=== PATIENT | male | born 2000 | race Caucasian/White ===

== ENCOUNTER 2019-03-11 04:11 | Emergency (ER) | payer OTHER ==
--- NOTE | 2019-03-11 04:49 | ED ---
HPI Chest Pain - HPI Summary HPI Summary: This pt is a 18 Y/O M presenting to [facility] with a CC of CP located Left Anterior that is rated a 7/10 and has been present since 0800 03/09/2019. He states that he has been SOB, clammy hands, clammy feet, chills, myalgia, night diaphoresis, inability to sleep, and a nonproductive cough. He states that he has had all of these symptoms since the onset of his CP. He denies any fevers, N/V, abdominal pain and dysuria. He states that he has no aggravating or alleviating factors. He has been eating since the onset but hasnt had much of an appetite. He states that he has a PMHx of asthma and a SHx of smoking tobacco in the past. - History of Current Complaint Chief Complaint: EDChestPainROMI Time Seen by Provider: 03/11/19 04:45 Hx Obtained From: Patient Onset/Duration: Started Days Ago - 2, Still Present Time of Onset: 08:00 - 03/09/2019 Timing: Constant Initial Severity: Moderate Current Severity: Moderate Pain Intensity: 7 Pain Scale Used: 0-10 Numeric Chest Pain Location: Left Anterior Chest Pain Radiates: No Character: Tightness Aggravating Factor(s): Nothing Alleviating Factor(s): Nothing Associated Signs and Symptoms: Positive: Negative - dysuria, Chest Pain, Shortness of Breath - clammy hands and feet, dysuria, myalgia, inability to sleep, Chills, Diaphoresis, Nonproductive Cough, Abdominal Pain, Other: - clammy hands and feet. Negative: Fever, Nausea, Vomiting - Allergy/Home Medications Allergies/Adverse Reactions: Allergies Allergy/AdvReac Type Severity Reaction Status Date / Time No Known Allergies Allergy Verified 03/11/19 04:14 PMH/Surg Hx/FS Hx/Imm Hx Previously Healthy: Yes Endocrine/Hematology History: Denies: Hx Diabetes Cardiovascular History: Denies: Hx Hypertension Respiratory History: Denies: Hx Sleep Apnea - Cancer History Hx Chemotherapy: No Hx Radiation Therapy: No - Surgical History Surgical History: None - Immunization History Immunizations Up to Date: Yes Infectious Disease History: No Infectious Disease History: Denies: Traveled Outside the [place] in Last 30 Days - Family History Known Family History: Positive: Hypertension, Diabetes - Social History Occupation: Student - [place] Lives: Dormitory/Roommates Alcohol Use: None Hx Substance Use: No Substance Use Type: Reports: None Hx Tobacco Use: Yes Smoking Status (MU): Former Smoker Review of Systems Positive: Chills, Skin Diaphoresis. Negative: Fever Positive: Chest Pain Positive: Shortness Of Breath Positive: Abdominal Pain. Negative: Vomiting, Nausea Negative: dysuria Positive: Myalgia Skin: Other - POSITIVE: clammy hands and feet All Other Systems Reviewed And Are Negative: Yes Physical Exam - Summary Physical Exam Summary: Appearance: Well-appearing, Well-nourished, lying in bed comfortably Skin: Warm, dry, no obvious rash Eyes: sclera anicteric, no conjunctival pallor ENT: mucous membranes moist, pharynx appears normal Neck: Supple, nontender Respiratory: Clear to auscultation, no signs of respiratory distress Cardiovascular: Normal S1, S2. No murmurs. Normal distal pulses in tibial and radial bilaterally. Abdomen: Soft, nontender, normal active bowel sounds present Musculoskeletal: Normal, Strength/ROM Intact Neurological: A&Ox3, awake and alert, mentation is normal, speech is fluent and appropriate Psychiatric: affect is normal, does not appear anxious or depressed Triage Information Reviewed: Yes Vital Signs On Initial Exam: Initial Vitals Temp Pulse Resp BP Pulse Ox 98.0 F 61 15 151/93 99 03/11/19 04:13 03/11/19 04:13 03/11/19 04:13 03/11/19 04:13 03/11/19 04:13 Vital Signs Reviewed: Yes Procedures - Sedation Patient Received Moderate/Deep Sedation with Procedure: No Diagnostics - Vital Signs Vital Signs Temp Pulse Resp BP Pulse Ox 03/11/19 04:13 98.0 F 61 15 151/93 99 - Laboratory Lab Results: Lab Results 03/11/19 Range/Units 04:28 Influenza A (Rapid) Pending Influenza B (Rapid) Pending Lab Statement: Any lab studies that have been ordered have been reviewed, and results considered in the medical decision making process. - Radiology CXR Radiology Interpretation Completed By: ED Physician Summary of Radiographic Findings: No acute processes. Pending offical review. - EKG 0421 Cardiac Rate: NL - 74 BPM EKG Rhythm: Sinus Rhythm ST Segment: Normal Ectopy: None Summary of EKG Findings: NSR at 74 BPM, P waves, QRS complex, and T waves are within normal limits, T waves and intervals are normal, no ischemic changes. This is a normal EKG. Interpreted by Dr. Terrazas at 03/11/2019 0426. Chest Pain Course/Dx - Course Course Of Treatment: This pt is a 18 Y/O M presenting to [facility] with a CC of CP located Left Anterior that is rated a 7/10 and has been present since 0800 2019. He states that he has been SOB, clammy hands, clammy feet, chills, myalgia , night diaphoresis, inability to sleep, and a nonproductive cough. He states that he has had all of these symptoms since the onset of his CP. His PE found no acute abnormalities. His EKG taken at 0421 NSR at 74 BPM, P waves, QRS complex, and T waves are within normal limits, T waves and intervals are normal , no ischemic changes. This is a normal EKG. His lab results are negative for Influenza. His CXR shows no acute processes. He will be discharged home with a Dx of chest pain and URI. - Diagnoses Provider Diagnoses: Chest pain, URI (upper respiratory infection) Discharge ED - Sign-Out/Discharge Documenting (check all that apply): Patient Departure - discharge - Discharge Plan Condition: Good Disposition: HOME Patient Education Materials: Chest Pain (ED), Upper Respiratory Infection (ED) Referrals: [facility] [Outside] Additional Instructions: The chest xray looks normal, no sign of pneumonia or other problem in the lungs. The EKG was normal, and the flu test was negative. The most likely cause of your symptoms is an upper respiratory infection. How this will progress is hard to say but your vital signs are good, and your lungs are clear so I think rest and OTC pain medication is your best course. If your symptoms worsen or you develop new symptoms you should be seen again, either her or at [facility]. - Billing Disposition and Condition Condition: GOOD Disposition: Home - Attestation Statements Document Initiated by Scribe: Yes Documenting Scribe: Fernie Putnam Provider For Whom Scribe is Documenting (Include Credential): Lucio Terrazas MD Scribe Attestation: I, Fernie Putnam, scribed for Lucio Terrazas MD on 03/12/19 at 0529. Scribe Documentation Reviewed: Yes Provider Attestation: The documentation as recorded by the scribe, Fernie Putnam accurately reflects the service I personally performed and the decisions made by me, Lucio Terrazas MD Status of Scribe Document: Viewed
[2019-03-11 04:50] LABS: Influenza A Molecular Negative (Negative); Influenza B Molecular Negative (Negative)
[2019-03-11 05:26] VITALS: BP 132/90
== END 2019-03-11 05:25 | disposition home or self-care (01) ==
LOC: ED 04:11
DX: R07.9 Chest pain, unspecified (principal); J06.9 Acute upper respiratory infection, unspecified; Z87.891 Personal history of nicotine dependence
CPT/HCPCS: 71046; 93005; 99282

== ENCOUNTER 2019-03-19 19:11 | Emergency (ER) | payer OTHER ==
[2019-03-19 19:23] VITALS: BP 148/73
== END 2019-03-19 21:31 | disposition left against medical advice (07) ==
LOC: ED 19:11
DX: Z53.21 Procedure and treatment not carried out due to patient leaving prior to being seen by health care provider (principal); R68.89 Other general symptoms and signs
CPT/HCPCS: 99281

== ENCOUNTER 2019-03-19 20:25 | Emergency (ER) | payer OTHER ==
[2019-03-19 20:51] VITALS: BP 152/80
--- NOTE | 2019-03-19 21:08 | UC ---
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 He was seen in the emergency room and then [email or web address] saw him and started him on 5 days of prednisone. He states the prednisone made him feel much better. Tonight he went to [email or web address] as they were closing and they sent him here to have a Monospot drawn. Patient states he is feeling better today but still with scattered body aches. - History of Current Complaint Chief Complaint: UCGeneralIllness Stated Complaint: BODY ACHES Time Seen by Provider: 03/19/19 20:52 Hx Obtained From: Patient Onset/Duration: Gradual Onset Onset Severity: Mild Current Severity: Mild Pain Intensity: 4 - Allergy/Home Medications Allergies/Adverse Reactions: Allergies Allergy/AdvReac Type Severity Reaction Status Date / Time No Known Allergies Allergy Verified 03/19/19 20:51 Home Medications: Home Medications Acetaminophen TAB* [Tylenol TAB*] 500 mg PO BID 03/19/19 [History Confirmed 01/24] PMH/Surg Hx/FS Hx/Imm Hx Previously Healthy: Yes Respiratory History: Asthma - Surgical History Surgical History: None - Family History Known Family History: Positive: Hypertension, Diabetes - Social History Alcohol Use: None Substance Use Type: None Smoking Status (MU): Former Smoker Review of Systems All Other Systems Reviewed And Are Negative: Yes Constitutional: Positive: Fever, Chills ENT: Positive: Nasal Discharge Respiratory: Positive: Cough - Occasional nonproductive cough. Musculoskeletal: Positive: Myalgia Is Patient Immunocompromised?: No Physical Exam Triage Information Reviewed: Yes Appearance: Well-Appearing, No Pain Distress, Well-Nourished Vital Signs: Initial Vital Signs Temp 98.2 F 03/19/19 20:42 Pulse 72 03/19/19 20:42 Resp 16 03/19/19 20:42 BP 152/80 03/19/19 20:42 Pulse Ox 100 03/19/19 20:42 Vital Signs Reviewed: Yes Eyes: Positive: Conjunctiva Clear ENT: Positive: Pharynx normal, TMs normal, Uvula midline Neck: Positive: Supple, Nontender, No Lymphadenopathy Respiratory: Positive: Lungs clear, Normal breath sounds, No respiratory distress, No accessory muscle use Cardiovascular: Positive: RRR, No Murmur, Pulses Normal, Brisk Capillary Refill Abdomen Description: Positive: Nontender, No Organomegaly, Soft. Negative: CVA Tenderness (R), CVA Tenderness (L), Distended, Guarding, Hepatomegaly, McBurney' s Point Tenderness, Splenomegaly Bowel Sounds: Positive: Present Musculoskeletal Exam: Normal Neurological Exam: Normal Psychological Exam: Normal Skin Exam: Normal Course/Dx - Course Course Of Treatment: The patient is comfortable here, he does not appear ill or in any distress. I did have a Monospot drawn and can call back here for those results. He is not involved in any contact sports. He is to follow up at the [facility] if he has continued symptoms and to go to the emergency room if he has any worsening symptoms. - Diagnoses Provider Diagnosis: Viral illness Discharge ED - Sign-Out/Discharge Documenting (check all that apply): Patient Departure All imaging exams completed and their final reports reviewed: No Studies - Discharge Plan Condition: Good Disposition: HOME Patient Education Materials: Mononucleosis (ED) Referrals: Dashawn Cárdenas MD [Primary Care Provider] - Additional Instructions: Increase fluids, rest, call here in 2 days for the Monospot results. Definite follow-up with the physician at [facility] if no improvement by Sunday. If you have any worsening symptoms you are to go to the emergency room for further treatment. - Billing Disposition and Condition Condition: GOOD Disposition: Home
[2019-03-21 16:14] LABS: EBV Capsid Ag IgG Ab Positive (Negative); EBV Capsid Ag IgM Ab Negative (Negative); Epstein-Barr Nuclear Antigen Positive (Negative)
--- NOTE | 2019-03-22 08:08 | UC ---
- Progress Note Progress Note: Please advise that he has had mono in the past: he has IgG antibodies and persistent antigen... this would be suggestive of onset of infection some weeks ago. Per report, he is feeling better. Course/Dx - Diagnoses Provider Diagnoses: Viral illness Discharge ED - Sign-Out/Discharge Documenting (check all that apply): Post-Discharge Follow Up All imaging exams completed and their final reports reviewed: No Studies - Discharge Plan Condition: Good Disposition: HOME Patient Education Materials: Mononucleosis (ED) Referrals: Dashawn Cárdenas MD [Primary Care Provider] - Additional Instructions: Increase fluids, rest, call here in 2 days for the Monospot results. Definite follow-up with the physician at [facility] if no improvement by Sunday. If you have any worsening symptoms you are to go to the emergency room for further treatment. - Billing Disposition and Condition Condition: GOOD Disposition: Home
== END 2019-03-19 21:40 | disposition home or self-care (01) ==
LOC: UCEAST 20:25
DX: B34.9 Viral infection, unspecified (principal); J45.909 Unspecified asthma, uncomplicated; R50.9 Fever, unspecified; R05 Cough; R09.89 Other specified symptoms and signs involving the circulatory and respiratory systems; Z87.891 Personal history of nicotine dependence
CPT/HCPCS: 36415; 86308; 86664; 86665; 99211; G0463